=== PATIENT | female | born 1945 | race Caucasian/White ===

== ENCOUNTER 2018-03-19 17:03 | Emergency (ER) | payer MEDICARE, OTHER ==
[~2018-03-19] VITALS: Ht 165.1 cm; Wt 72.6 kg
[2018-03-19] MEDS ORDERED: NS IV 1000 ML 1,000 ML IV SCH (17:15)
[2018-03-19] MEDS ORDERED: fentaNYL INJECTION 100 MCG/2 ML AMP IVP ONE (17:15)
[2018-03-19] MEDS ORDERED: ONDANSETRON 4 MG/2 ML (SDV) Z0FRAN IVP ONE (17:15)
--- NOTE | 2018-03-19 17:35 | ED Fall/Injury ---
General Stated Complaint: L ARM PAIN Source: patient Exam Limitations: no limitations History of Present Illness Date Seen by Provider: Mar 19, 2018 Time Seen by Provider: 17:27 Initial Comments This 73-year-old white female presents after inadvertently fracturing her left humerus when she tripped and fell shortly prior to presentation in the emergency department. The patient had gone to attend a concert when she inadvertently sustained the injury. She is complaining of little pain but gross instability of the midportion of her left humerus. She denies other significant injury and her accident other than hitting her left cheek. Fortunately there was no associated loss of consciousness, subsequent neck pain , para-she's or weakness in the extremities, or other significant injury interaction. Past medical history and medications include digoxin. The patient is not on blood thinners. She takes aspirin daily. The patient has a new physician in [place], [place]. Allergies and Home Medications Allergies Coded Allergies: No Known Drug Allergies (Unverified , 03/19/18) Patient Home Medication List Home Medication List Reviewed: Yes Review of Systems Review of Systems Constitutional: No chills, No fever, No malaise Eyes: Denies Blurred Vision Ears, Nose, Mouth, Throat: denies ear pain Respiratory: No cough, No short of breath Cardiovascular: No chest pain, No palpitations Gastrointestinal: No abdominal pain, No nausea, No vomiting Genitourinary: No dysuria, No frequency : No Musculoskeletal: see HPI; No back pain; other (patient is complaining of little pain but marked instability of midportion of her left humerus.) Skin: No change in color, No rash Psychiatric/Neurological: No Symptoms Reported Past Aognsli-Xirmsd-Igvfqz Hx Past Med/Social Hx: Reviewed Nursing Past Med/Soc Hx Patient Social History Recent Foreign Travel: No Contact w/Someone Who Travel: No Physical Exam Vital Signs Capillary Refill : Height, Weight, BMI Height: '" Weight: lbs. oz. kg; BMI Method: General Appearance: WD/WN, no apparent distress HEENT: normal ENT inspection, other Neck: full range of motion, other (a contusion is noted over the left malar area. Remaining ENT exam is unremarkable.) Cardiovascular: irregularly irregular Respiratory: lungs clear Gastrointestinal: normal bowel sounds, non tender, soft Back: normal inspection Extremities: other (there is swelling, tenderness, and instability on palpation of the midportion of the left humerus. Fortunately there is normal neurovascular and tendon exam of the left upper extremity.) Neurologic/Psychiatric: no motor/sensory deficits, alert, normal mood/affect, oriented x 3 Skin: warm/dry [place] Coma Score Best Eye Response: (4) Open Spontaneously Best Verbal Response: (5) Oriented Best Motor Response: (6) Obeys Commands Progress/Results/Core Measures Results/Orders My Orders Orders - PILAR ORO MD Humerus, Left, 2 Views (03/19/18 17:13) Ns Iv 1000 Ml (Sodium Chloride 0.9%) (03/19/18 17:15) Fentanyl Injection (Sublimaze Injection (03/19/18 17:15) Ondansetron Injection (Zofran Injectio (03/19/18 17:15) Progress Progress Note : Time: 17:43 Progress Note The patient's pain was significant only improved with fentanyl 50 g IV. She was also given 4 mg of Zofran IV. The patient's x-ray left humerus demonstrated overriding midshaft fracture of the left humerus. Next Patient was placed in a sling and swath for immobilization and comfort. Next Patient will follow-up with her primary care physician the morning for his recommendations for orthopedic referral. Departure Impression Primary Impression: Fracture, humerus closed Disposition: 01 HOME, SELF-CARE Condition: Improved Departure-Patient Inst. Decision time for Depature: 17:46 Referrals: NO,LOCAL PHYSICIAN (PCP) Primary Care Physician EDITH ONEAL DO Add. Discharge Instructions: Follow-up with orthopedics with your disc for further evaluation and treatment of your left fracture. Percocet and Zofran for pain and nausea respectively. Continue with immobilization of the left upper extremity and sling and swath. Return if any problems or questions. PILAR ORO MD Mar 19, 2018 17:35
--- NOTE | 2018-03-19 17:38 | Diagnostic Imaging Report ---
INDICATION: Trauma. EXAMINATION: Two views of the left humerus. FINDINGS: There is an oblique fracture along the proximal humeral shaft. There is mild angulation and slight overriding at the fracture site. The humeral head is in good articulation with the glenoid. The elbow appears in good alignment. IMPRESSION: Oblique fracture with mild foreshortening and angulation at the fracture site of the proximal humeral shaft. Dictated by: Dictated on workstation # [id number]
[2018-03-19 18:08] VITALS: BP 177/106
== END 2018-03-19 18:08 | disposition home or self-care (01) ==
LOC: ER 17:04
DX: S42.292A Other displaced fracture of upper end of left humerus, initial encounter for closed fracture (principal); R40.2142 Coma scale, eyes open, spontaneous, at arrival to emergency department; R40.2252 Coma scale, best verbal response, oriented, at arrival to emergency department; R40.2362 Coma scale, best motor response, obeys commands, at arrival to emergency department; W01.0XXA Fall on same level from slipping, tripping and stumbling without subsequent striking against object, initial encounter
CPT/HCPCS: 73060